=== PATIENT | male | born 1955 | race Caucasian/White ===

== ENCOUNTER → 2024-01-24 12:28 | Outpatient (REF) | payer MEDICARE, SELFPAY | LOC: RAD 12:28 | PROVIDERS: ATTENDING PHYSICIAN Nurse Practitioner Primary Care; FAMILY PHYSICIAN Internal Medicine Geriatric Medicine | DX: K21.9 Gastro-esophageal reflux disease without esophagitis (principal); K29.50 Unspecified chronic gastritis without bleeding; R10.13 Epigastric pain; M62.08 Separation of muscle (nontraumatic), other site | CPT/HCPCS: 74177; Q9967 ==

== ENCOUNTER 2024-02-09 03:19 | Emergency (ER) | payer MEDICARE, SELFPAY ==
[2024-02-09 03:21] VITALS: BP 180/84
[2024-02-09 05:05] VITALS: BMI 27.3
[2024-02-09 05:06] VITALS: BP 156/73
[2024-02-09] MEDS: ADACEL 0.5 ML IM (05:21)
--- NOTE | 2024-02-09 05:31 | ED.SKININJ ---
HPI-Injury
<CELINA King (Lenka) - Last Filed: 02/09/24 05:56>
General
Chief Complaint: Skin Surface Trauma
Source: patient and spouse
Exam Limitations: none
Time Seen by Provider: 02/09/24 05:18
Nursing documentation reviewed up to this point in time: agreed with
History of Present Illness-Injury
Is this injury a work related problem?: No
Is pt an associate of [facility]?: No
Initial Injury comments:
Pt is a 68 yo male with PMHx of NC s/p LAD stent '15, SVT, HTN, RIVERA, presenting to the ED for 2cm laceration to the glabella. Pt awoke startled in the middle of the night, knocked over a glass of water from his nightstand, bent over to pick it up and
in the process, hit his face on the edge of his night stand. Pt denies lightheadedness, dizziness, vision changes, N/V, confusion, LOC. at bedside denies any AMS in patient. No obvious deformity or tenderness to nasal bridge.
Pt takes daily aspirin 81mg.
Past History
<CELINA King (Lenka) - Last Filed: 02/09/24 05:56>
Past History
ED Past Medical History: Arrthythmia and HTN
ED Past Surgical History: Cardiac
Social History
Tobacco: Non-smoker
Alcohol: None
Drug: None
Personal:
Living: with family
Employment: Employed
Family History
Family History: CAD
Skin Exam
<CELINA King (Lenka) - Last Filed: 02/09/24 05:56>
Laceration
Medial Eye brow:
Length in cm: 2
Orientation: L shaped (glabella, between B/L eyebrows)
Type of Laceration: simple
Any active bleeding?: no active bleeding
Distal skin color and temperature: normal-warm & good color
Range of motion: full
Phy Exam
<ST King (Lenka)IN - Last Filed: 02/09/24 05:56>
General Physical Exam
General Presentation: well appearing and no apparent distress
General age: appears stated age
General Skin: warm and dry
General Habitus: normal
General Mental: alert
Eye Exam
Eye Exam: PERRL, EOMI and conjunctiva normal
Pulmonary Exam
Pulmonary Exam: no respiratory distress and no cough
Neurological Exam
Neurological Exam: alert, oriented x3 and speech normal
Skin Exam
Skin Exam: laceration (glabella)
Course
<ST King (Lenka)IN - Last Filed: 02/09/24 05:56>
Orders/Labs/Results
Orders:
Orders
02/09/24 05:17
Tetanus/Diphth/Acelpertussis [Adacel] 0.5 ml IM .ONCE ONE
Vital Signs
Initial and Last Documented VS:
Initial Vital Signs
Temp Pulse Resp BP Pulse Ox
97 F 58 22 180/84 100
02/09/24 03:21 02/09/24 03:21 02/09/24 03:21 02/09/24 03:21 02/09/24 03:21
Last Documented Vital Signs
Temp Pulse Resp BP Pulse Ox
97 F 53 18 156/73 97
02/09/24 03:21 02/09/24 05:06 02/09/24 05:06 02/09/24 05:06 02/09/24 05:06
<Shad Lott DO - Last Filed: 02/09/24 05:55>
Orders/Labs/Results
Orders:
Orders
02/09/24 05:17
Tetanus/Diphth/Acelpertussis [Adacel] 0.5 ml IM .ONCE ONE
Vital Signs
Initial and Last Documented VS:
Initial Vital Signs
Temp Pulse Resp BP Pulse Ox
97 F 58 22 180/84 100
02/09/24 03:21 02/09/24 03:21 02/09/24 03:21 02/09/24 03:21 02/09/24 03:21
Last Documented Vital Signs
Temp Pulse Resp BP Pulse Ox
97 F 53 18 156/73 97
02/09/24 03:21 02/09/24 05:06 02/09/24 05:06 02/09/24 05:06 02/09/24 05:06
<CELINA King (Lenka) - Last Filed: 02/09/24 05:56>
MDM/Problems Addressed
Differential Diagnosis Includes:
68 yo male with PMHx of NC s/p LAD stent '15, SVT, HTN, RIVERA, presenting to the ED for 2cm laceration to the glabella.
Denies lightheadedness, dizziness, vision changes, N/V, confusion.
at bedside denies any AMS in patient. No obvious deformity or tenderness to nasal bridge.
Pt takes daily aspirin 81mg.
DDx: laceration vs concussion
Pt with no changes to AMS. Superficial lac. Will repair with skin glue. Wound precautions discussed.
<CELINA King (Lenka) - Last Filed: 02/09/24 05:56>
*Critical Care Note
Total Time (30-74mins, 75-104mins- exclusive of procedures): Not Applicable
ED Attending Note
<CELINA King (Lenka) - Last Filed: 02/09/24 05:56>
-
Portions of this chart may have been created with voice recognition software.� Occasional wrong word or��sound alike� substitutions may have occurred due to the inherent limitations of voice recognition software.
<Shad Lott, DO - Last Filed: 02/09/24 05:55>
ED Attending Note
Patient seen and examined by attending physician: Yes
I performed the substantive portion of visit, reviewed & personally made and approve the management plan that is documented in note by myself or EARLENE.: Yes
ED Attending Note:
Pleasant 68-year-old male who presents with superficial laceration to his glabella. Patient awakened in the middle of the night and was startled. He knocked off his water glass from the dresser. He went to pick it up and hit his head on the
corner. Denies any loss of consciousness. Patient was seen in conjunction with the PA student. I have reviewed and agree with the history and treatment plan presented. On my independent physical exam, patient is awake, alert, and oriented x3, no
acute distress. There is a 2-1/2 cm stellate superficial laceration to the glabella. We did use Dermabond to approximate the wound. Patient tolerated procedure well with no immediate adverse effects. Discussed wound care techniques including
keeping clean. Patient being discharged in improved condition. Patient did receive a tetanus shot.
Discharge Plan
Departure
Patient Disposition: Home (Routine Discharge)
Date of Disposition: 02/09/24
Time of Disposition: 05:53
Patient with high blood pressure during this ER visit?: Yes
Condition: Good
Discharge Problem:
Laceration, Closed head injury
Instructions: Laceration Repair With Glue (DC), Wound Care (DC), BLOOD PRESSURE
Prescriptions:
No Action
aspirin 81 MG tablet,delayed release (DR/EC)
81 mg PO DAILY Qty: 0 0RF
irbesartan 300 MG tablet
300 mg PO DAILY
omeprazole 20 MG tablet,delayed release (DR/EC)
20 mg PO BID
multivitamin Tablet
1 tab PO DAILY
ezetimibe [Zetia] 10 mg Tablet
10 mg PO DAILY
pitavastatin calcium [Livalo] 1 mg Tablet
1 mg PO Q48H
hydralazine 50 mg Tablet
100 mg PO BID
acetaminophen 500 mg Tablet
1,000 mg PO Q6H PRN (Reason: pain)
metoprolol succinate [Toprol XL] 50 mg Tablet Extended Release 24 Hr
50 mg PO BID
sucralfate [Carafate] 1 gram Tablet
1 g PO BID
famotidine 20 mg Tablet
20 mg PO HS PRN (Reason: acid reflux)
buspirone 10 mg Tablet
10 mg PO BID
mecobalamin (vitamin B12) [B12 Active] 1,000 mcg Tablet,Chewable
1,000 mcg PO DAILY
metoprolol succinate [Toprol XL] 100 mg Tablet Extended Release 24 Hr
100 mg PO .EVENING
Referrals:
Rochelle Boyle CRNP [Family Provider] -
Activity Restrictions/Additional Instructions:
You did receive a tetanus shot tonight. Please update your records.
It was a pleasure meeting you and taking part in your care. We hope for your continued healing and wellness.
Please read discharge instructions in their entirety. However, they are for general education and may not describe your exact diagnosis at discharge. Information on your ER visit and medical conditions were discussed with you along with appropriate
follow up information...
If indicated, please take your medications as instructed and indicated on discharge paperwork.
Please schedule a follow up appointment as directed. Call to schedule an appointment
Please return to the emergency department with ANY change in, persisting, or worsening of symptoms. If any of your symptoms do not improve, or persist, or become more severe within 6-12 hours, please return to the emergency department for further
care.
Please return to the emergency department if you develop a headache, neck pain/stiffness, fever greater than 100.4F, chest pain, shortness of breath, persistent nausea, vomiting, slurred speech, difficulty walking, numbness/tingling, weakness, signs
of infection or any other symptoms that are worrisome to you.
If you have any questions or concerns please do not hesitate to call the Hospital at or E-mail me directly at [email or web address]
Interventions
Interventions:
*Risk Screen - Suicide Last Done: 02/09/24 03:21
*General Assessment Last Done: 02/09/24 05:08
*Neglect/Abuse Screening Last Done: 02/09/24 03:21
ED- Fall Risk Assessment Last Done: 02/09/24 05:09
*ED COVID-19 Vaccine History Last Done: 02/09/24 05:05
ED-Skin Assessment Last Done: 02/09/24 05:09
Discharge Date and Time
Print Language: SINHALA
== END 2024-02-09 05:55 | disposition home or self-care (01) ==
LOC: EMR 03:19
PROVIDERS: EMERGENCY PHYSICIAN Student in an Organized Health Care Education/Training Program; FAMILY PHYSICIAN Nurse Practitioner Primary Care
DX: S09.90XA Unspecified injury of head, initial encounter (principal); S01.81XA Laceration without foreign body of other part of head, initial encounter; W22.8XXA Striking against or struck by other objects, initial encounter; Z23 Encounter for immunization; I10 Essential (primary) hypertension; K21.9 Gastro-esophageal reflux disease without esophagitis; K44.9 Diaphragmatic hernia without obstruction or gangrene; I25.2 Old myocardial infarction; Z95.5 Presence of coronary angioplasty implant and graft; Z87.442 Personal history of urinary calculi; Z79.82 Long term (current) use of aspirin
CPT/HCPCS: 99282; 12011; 90471; 90715

== ENCOUNTER → 2024-04-10 12:29 | Outpatient (REF) | payer MEDICARE, SELFPAY | LOC: DHCBC/DCA 12:29 | PROVIDERS: ATTENDING PHYSICIAN Internal Medicine; FAMILY PHYSICIAN Nurse Practitioner Primary Care | DX: R07.9 Chest pain, unspecified (principal); I25.10 Atherosclerotic heart disease of native coronary artery without angina pectoris; Z95.5 Presence of coronary angioplasty implant and graft | CPT/HCPCS: 78452; 93017; A9500; J2785 ==